=== PATIENT | male | born 1985 | race Asian ===

== ENCOUNTER 2019-06-23 02:26 | Emergency (ER) | payer MEDICAID ==
[~2019-06-23] VITALS: Ht 172.7 cm; Wt 104.5 kg
[2019-06-23 05:41] VITALS: BP 121/80
== END 2019-06-23 05:41 | disposition home or self-care (01) ==
LOC: EMS 02:27
DX: R43.2 Parageusia (principal); F17.210 Nicotine dependence, cigarettes, uncomplicated; F12.90 Cannabis use, unspecified, uncomplicated; Z03.818 Encounter for observation for suspected exposure to other biological agents ruled out
CPT/HCPCS: 87635